=== PATIENT | male | born 1945 | race Caucasian/White ===

== ENCOUNTER → 2016-12-25 | Outpatient (CLI) | payer MEDICARE ==
[~2016-12-25] MED LIST: ALLEGRA DPS180 MG PO; ASA CHILDREN'S81 MG PO; AUGMENTIN875 MG PO; COMPAZINE10 MG PO; CORDARONE DPS200 MG PO; CYMBALTA60 MG PO; ELIQUIS5 MG PO; FIBERCON DPS625 MG PO; FLOMAX DPS0.4 MG PO; HUMULIN 70100 UNIT/1 SQ; JANUVIA50 MG PO; LIPITOR DPS40 MG PO; MARYS PO; MEN 50 PLUS MU1 EACH PO; MIDODRINE HCL5 MG PO; MILK OF MA400 MG/5 M PO; NITROSTAT0.4 MG SL; NOVOLOG100 UNIT/1 SQ; PRO-AMATINE2.5 MG PO; TYLENOL EXTRA500 M1 PO
== END | disposition home or self-care (01) ==
LOC: PTH.S 10:01
DX: Z01.812 Encounter for preprocedural laboratory examination (principal)

== ENCOUNTER 2017-01-01 05:50 | Inpatient (IN) | payer MEDICARE ==
[~2017-01-01] VITALS: Ht 182.9 cm; Wt 113.7 kg
--- NOTE | ~2017-01-01 | FD ---
ADMIT: 01/01/2017 RM/LOC: 530 [facility] MR#: [id number] [address] [address] ABIEL SALAMANCA [address] [place] [address] Final Diagnosis SEX: M AGE: 71 : 1945 ADMISSION DATE: 01/01/2017 DISCHARGE DATE: 01/02/2017 PROCEDURE: 1. Removal of left subclavian power port. 2. Flexible sigmoidoscopy to evaluate the area of anastomosis. 3. Takedown of loop ileostomy. 4. Exploration and debridement of midline abdominal wound abscess. FINAL DIAGNOSIS: Small piece of small intestine was sent to pathology after this procedure. There was no significant diagnostic alteration found. History of rectosigmoid cancer. ARMANDO Swanson / Janusz Phan MD / ijeoma JOB #: [id number] CC: Janusz Phan MD, Attending Physician Marlen Cuevas MD, Family Physician
[~2017-01-01 05:50] MED LIST changes: -MIDODRINE HCL5 MG PO; -NOVOLOG100 UNIT/1 SQ
[2017-01-03] MEDS ORDERED: NOVOLOG100 UNIT/1 SQ (13:04)
[2017-01-03] MEDS ORDERED: HUMULIN 70100 UNIT/1 SQ (13:06)
[2017-01-03] MEDS ORDERED: MIDODRINE HCL5 MG PO (13:07)
--- NOTE | 2017-01-07 12:56 | CO ---
ADMIT: 01/01/2017 RM/LOC: 530 [facility] MR#: [id number] [address] [address] JULIO SALAMANCA [address] [place] [address] Consultation SEX: M AGE: 71 : 1945 DATE OF CONSULTATION: 01/02/2017 ATTENDING PHYSICIAN: Janusz Phan MD CONSULTING PHYSICIAN: Cornel Nuñez MD REASON FOR CONSULTATION: Diabetic management. HISTORY OF PRESENT ILLNESS: Julio is a very pleasant 71-year-old white male, admitted by Dr. Phan for an elective loop ileostomy takedown as well as removal of a left PowerPort. He does have a history of diabetes mellitus type 2. I am consulted today for medical comanagement and management of his diabetes. He is seen today status post loop ileostomy takedown, exploration and debridement of midline abdominal wound and stitch abscess, flexible sigmoidoscopy to evaluate area of anastomosis, and removal of left subclavian PowerPort. PAST MEDICAL HISTORY: Remarkable for: 1. Adenocarcinoma of the rectosigmoid. 2. Coronary artery disease. 3. Diabetes mellitus type 2. 4. History of diabetic osteomyelitis. 5. Hypertension. 6. Paroxysmal atrial fibrillation. 7. Prior four-vessel coronary artery bypass graft. 8. Stage 3 chronic kidney disease. ALLERGIES: NO KNOWN MEDICAL ALLERGIES. MEDICATIONS: Per his admission MAR. SOCIAL HISTORY: He is a nonsmoker and nondrinker. He normally sees Dr. Marlen Cuevas in [place] for his primary care needs. He is , and retired. FAMILY HISTORY: Noncontributory. REVIEW OF SYSTEMS: This morning, he is up, eating breakfast. He has minimal abdominal pain. He has not had any vomiting. He has done quite well postoperatively. Remainder of his review of systems is as per HPI. All others were reviewed and were negative. PHYSICAL EXAMINATION: VITAL SIGNS: Blood pressure is 135/78, pulse 92, respirations 12, temp 98.9, O2 saturation is 96% on room air. GENERAL: He is awake, alert, no acute distress. Upright in the bedside chair and just finishing up breakfast. HEENT: Normocephalic, atraumatic. ADMIT: 01/01/2017 RM/LOC: 530 [facility] MR#: [id number] [address] [address] JULIO SALAMANCA [address] [place] [address] Consultation SEX: M AGE: 71 : 1945 HEART: Regular rate and rhythm. No murmurs, gallops, or rubs. LUNGS: Clear to auscultation bilaterally. ABDOMEN: Soft, nontender, nondistended. No rebound, guarding, or masses. LABORATORY AND X-RAY DATA: A postoperative CBC shows a white count of 3.9, hemoglobin of 8.7, hematocrit 28.1, and a platelet count of 189. ASSESSMENT: 1. Status post loop ileostomy takedown, postoperative day #1. 2. Diabetes mellitus type 2. PLAN: With Julio now increasing his p.o. intake, we will change his Accu- Cheks to after meals and at bedtime. We will resume his home dose of insulin 70/30, and resume his home Januvia. We will follow along but at this point, he is doing great and I suspect to be discharged to home either later today or early in the morning. Cornel Nuñez MD/ sureshl JOB #: [id number] CC: Janusz Phan MD, Attending Physician Marlen Cuevas MD, Family Physician
--- NOTE | 2017-01-19 12:20 | OR ---
ADMIT: 01/01/2017 RM/LOC: 530 [facility] MR#: [id number] [address] [address] ABIEL SALAMANCA Carmen [address] [place] [address] Operative/Delivery Room Report SEX: M AGE: 71 : 1945 SURGERY DATE: 01/01/2017 SURGEON: Janusz Phan MD PREOPERATIVE DIAGNOSIS: History of rectal cancer status post resection with loop ileostomy, request for takedown as well as no longer need for power port, left side. PROCEDURES: 1. Removal of left subclavian PowerPort. 2. Flexible sigmoidoscopy to evaluate the area of anastomosis. 3. Takedown of loop ileostomy. 4. Exploration and debridement of midline abdominal wound/stitch abscess. ANESTHESIA: General endotracheal tube anesthesia. ESTIMATED BLOOD LOSS: 20 mL or less for all. INDICATION FOR PROCEDURE: Please see H and P. PROCEDURE IN DETAIL: After the risks, benefits, possible complications, and the alternatives have been explained, and informed consent had been obtained, the patient was taken back to the operating room, underwent general anesthesia. The surgical field was prepped and draped in a sterile manner. Actually first prepped and draped the [id number] in the left subclavian area, made an incision with a knife down through skin and subcutaneous tissue, opened the pocket, cut the stitch and the PowerPort from the left side was removed in its entirety, closed with some interrupted 3-0 Vicryl and a running 4-0 Monocryl that was bandaged. I then did a flexible sigmoidoscopy. You can see in the pictures, the area of the anastomosis and we had come anteriorly, is where we ended up anastomosis in the sigmoid colon down to the rectal stump and so you can see an extra opening there and then this other spot is a, I am sure radiation type of little a channel from the previous radiation. [place] I could get through this anastomosis, it was not narrowed overtly or anything funny and so should be good to go. The scope was removed. I had only advanced about 20 cm through the anastomosis. The legs were placed down out of the fins, placed flat and everything was sterilely prepped and draped as I a gowned and gloved and scrubbed. First he had a small, right around his umbilicus, and below, a little opening that had some granulation tissue and it has been draining. So I went ahead and opened that up, debrided some of the subcutaneous tissue that is kind of superficial to the fascia using a knife. I did not have to do anything deep to the fascia. There was part of a stitch that I found. I was able to remove. Did not see anything else, cleaned it up, washed it out with Betadine and then closed with some nawaf and a wick was placed. ADMIT: 01/01/2017 RM/LOC: 530 [facility] MR#: [id number] [address] [address] TEJAL SALAMANCABIGG Morales [address] [place] [address] Operative/Delivery Room Report SEX: M AGE: 71 : 1945 Once that was done, we then began with the ileostomy takedown and coursed for awhile, where getting output from the ileostomy was always tough. I ended up kind using a Ray-Vladislav to stuff in there and keep it from leaking. So, definitely contaminated fairly significantly here. Used a knife to go around the loop ileostomy, freeing that up from the skin and subcutaneous tissue all way down to the fascia and circumferentially freeing that up to where I could feel there was nothing else there. The bowel was brought up. I was able to then kind of free it up, open up the ends, clean it off enough that I could do a [id number] functional end-to-end stapled anastomosis of the loop ileostomy using the MILDRED 75 and removing the end of it with the MILDRED 75 as well. I used some silk sutures to over sew the staple line and the crotch of the anastomosis. It appeared patent nicely. I then returned it to the abdominal cavity and closed the ileostomy site in the right lower quadrant with a couple layers of PDS first closing the peritoneum, irrigated out with some water, then closed the fascia with another layer, irrigated out with water and Betadine. Couple of subcutaneous stitches were placed and nawaf and felicia. He tolerated all very well. He was being extubated when I left the room. He was in stable and satisfactory condition with all needle and lap counts correct x2. Janusz Phan MD/ ijeoma JOB #: [id number] CC: Janusz Phan, Attending Physician Marlen Cuevas, Family Physician
== END 2017-01-02 15:56 | disposition home or self-care (01) | DRG 330 ==
LOC: 5MS 05:50 → WOR 05:50 → 5MS 10:04
PROVIDERS: ADMIT Surgery
PROC: 0DJD8ZZ Inspection of Lower Intestinal Tract, Via Natural or Artificial Opening Endoscopic (ICD-10-PCS; principal; 2017-01-01)
PROC: 0JB80ZZ Excision of Abdomen Subcutaneous Tissue and Fascia, Open Approach (ICD-10-PCS; principal; 2017-01-01)
PROC: 02PY33Z Removal of Infusion Device from Great Vessel, Percutaneous Approach (ICD-10-PCS; principal; 2017-01-01)
PROC: 0JPT0XZ Removal of Tunneled Vascular Access Device from Trunk Subcutaneous Tissue and Fascia, Open Approach (ICD-10-PCS; principal; 2017-01-01)
PROC: 0DBB0ZZ Excision of Ileum, Open Approach (ICD-10-PCS; principal; 2017-01-01)
DX: Z43.2 Encounter for attention to ileostomy (principal); T81.4XXA Infection following a procedure, initial encounter; E11.22 Type 2 diabetes mellitus with diabetic chronic kidney disease; E11.40 Type 2 diabetes mellitus with diabetic neuropathy, unspecified; L02.211 Cutaneous abscess of abdominal wall; I25.10 Atherosclerotic heart disease of native coronary artery without angina pectoris; I12.9 Hypertensive chronic kidney disease with stage 1 through stage 4 chronic kidney disease, or unspecified chronic kidney disease; N18.3 Chronic kidney disease, stage 3 (moderate); I95.1 Orthostatic hypotension; E66.9 Obesity, unspecified; Z68.34 Body mass index [BMI] 34.0-34.9, adult; Z79.4 Long term (current) use of insulin; Z85.048 Personal history of other malignant neoplasm of rectum, rectosigmoid junction, and anus; Z79.82 Long term (current) use of aspirin; Z95.1 Presence of aortocoronary bypass graft

== ENCOUNTER 2017-03-08 11:05 | Inpatient (IN) | payer MEDICARE ==
[~2017-03-08] VITALS: Ht 182.9 cm; Wt 126.0 kg
--- NOTE | ~2017-03-08 | OR ---
ADMIT: 03/08/2017 RM/LOC: 306 [facility] MR#: [id number] 26[address] [facility] [address] [place] [phone] ABIEL SALAMANCA [address] [place] [address] Operative/Delivery Room Report SEX: M AGE: 71 : 1945 SURGERY DATE: 03/08/2017 SURGEON: Janusz Phan MD PREOPERATIVE DIAGNOSES: History of a rectal cancer with previous radiation, resection, and now anemia and ongoing rectal bleeding, bright red blood per rectum. PROCEDURES: 1. EGD (Esophagogastroduodenoscopy). 2. Flexible sigmoidoscopy with a Resolution clip for acute bleeding, radiated and ulcerated area within the lower rectum and pelvis. DIRECTOR OF STUDENT AID: Tay Hopper MD, who was necessary for adequate help and exposure trying to hold this bleeding. ANESTHESIA: First MAC anesthesia converted to a general endotracheal tube anesthesia. ESTIMATED BLOOD LOSS: 300 mL. Ultimately, over the course, we activated the transfusion protocol, the patient got 6 total units of blood, 2 uncross matched and 4 cross matched units of packed red blood cells, 2 units of FFP, and 1 unit of platelets. INDICATION FOR PROCEDURE: Please see my H and P. After the risks, benefits, possible complications, and the alternatives had been explained, and informed consent had been obtained, the patient was taken back to the operating room and underwent some sedation. The flexible EGD scope was first introduced slowly maneuvering down through the esophagus, stomach, down into the second portion of the duodenum. The duodenum and duodenal bulb appeared okay. The gastric antrum and the body showed no other ulcerations, no masses, no lesions, no evidence of bleeding here at the GE junction. The remainder of the esophagus otherwise looked okay as the scope was removed, and this portion of the procedure terminated. The patient was repositioned. The flexible colonoscope then was introduced and immediately just significant amount of clot as you can see in my pictures, there was a couple different sets there and just a very radiated, irritated area within this lower rectum. When I kept suctioning out this clot and suctioning out this clot, I ended up getting Dr. Hopper to come in here and help, and using the Yankauer suction to suction it out, we finally got enough suctioned out and then one of the sets of pictures, I do not know what we call it picture #4, shows this area of some active bleeding where I could actually see pulsatile bleeding here, and I ended up getting a Resolution clip. At some point, got things set up, and I attempted at least to place a Resolution clip on here, and immediately, I had some more blood and then I could not see, and I tried cleaning and suctioning it out, then appeared that it had stopped, so the resolution clip was in good position, I am not 100% sure because I did not ADMIT: 03/08/2017 RM/LOC: 306 [facility] MR#: [id number] [address] [place] [phone] ABIEL SALAMANCA Carmen [address] [place] [address] Operative/Delivery Room Report SEX: M AGE: 71 : 1945 want to mess with it. After a while and like I said, he was bleeding quite a bit and we have started the massive transfusion protocol, and actually during this process, anesthesia had intubated him. Before we kind of retried this to look at it again, felt we had it adequately halted for temporary time being, and so I did not mess with anything else. I got ahold of Dr. Graff, and so from an interventional standpoint, he is going to do an angio to see if he can find the area that is bleeding, the vessel that is bleeding, and just basically embolize it so that we do not have any other issues here with this continuing to bleed. So from that standpoint, he left the operating room, intubated, Han in place, and taken over to Interventional Radiology, and you can see his overall notes for that. Janusz Phan MD/ ijeoma JOB #: [id number] CC: Janusz Phan, Attending Physician Marlen Cuevas, Family Physician Marlen Cuevas MD
[~2017-03-08 11:05] MED LIST changes: +MIDODRINE HCL5 MG PO; +NOVOLOG100 UNIT/1 SQ
--- NOTE | 2017-03-11 18:15 | CO ---
ADMIT: 03/08/2017 RM/LOC: 306 [facility] MR#: [id number] [address] [address] TEJAL SALAMANCABIGG Morales [address] [place] [address] Consultation SEX: M AGE: 71 : 1945 DATE OF CONSULTATION: 03/08/2017 ATTENDING PHYSICIAN: Janusz Phan CONSULTING PHYSICIAN: Emil Mendoza MD REASON FOR CONSULTATION: Respiratory failure. HISTORY OF PRESENT ILLNESS: A 71-year-old male with recent history of rectal cancer. It sounds as if he had some preoperative radiation and chemotherapy and then subsequent surgical resection. He had an ileostomy for a period of time and then eventually had a takedown with reanastomosis. I believe, the original diagnosis was in August per the charts, but I do not have all the dates. At any rate, he has been having some persistent rectal bleeding resulting in anemia and overall weakness. Told, he underwent endoscopy for evaluation. EGD was unremarkable. Flexible sigmoidoscopy revealed a rectal ulcer that began to actively bleed. With local control, the bleeding eventually subsided. Invasive radiology did evaluate him, but there was no vessel that was able to be embolized. Bleeding has subsided for the most part. According to Dr. Phan, he received 6 units of packed red blood cells, 2 units of FFP, and 1 unit of platelets. Blood pressure has stabilized and he is not any longer on pressors. He does remain on a ventilator, and we are asked to participate in his care. He does not have any history of chronic lung disease. He did previously smoke about a pack and a half daily for what sounds like about 30 years, but quit about 20 years ago. He does have coronary artery disease and had bypass surgery in 2008. He does have a history of paroxysmal atrial fibrillation and is on amiodarone. He has not been on anticoagulation recently because of the anemia. There has not been any purulent phlegm production. No hemoptysis. PAST MEDICAL HISTORY: 1. Rectal cancer, as above. 2. Coronary artery disease, status post bypass surgery in 2008. 3. Paroxysmal atrial fibrillation, on amiodarone. 4. Hypertension. 5. Hyperlipidemia. 6. Diabetes mellitus. 7. History of peripheral vascular disease with partial foot amputation in the past. HOME MEDICATIONS: Reviewed and included; 1. Aspirin. 2. Duloxetine. 3. Atorvastatin. 4. Fexofenadine. 5. Insulin. 6. Januvia. 7. Multivitamin. ADMIT: 03/08/2017 RM/LOC: 306 [facility] MR#: [id number] [address] [address] ABIEL SALAMANCA [address] [place] [address] Consultation SEX: M AGE: 71 : 1945 8. Flomax. 9. Amiodarone. 10.Midodrine. 11.Iron sulfate. 12.Prilosec. 13.Tylenol. 14.Nitrostat. ALLERGIES: NONE ARE LISTED. SOCIAL HISTORY: Previous smoker, sounds like about a 40- to 50-pack year history of smoking. FAMILY HISTORY: Noncontributory to his current illness. REVIEW OF SYSTEMS: GENERAL: No recent fevers. SKIN: No rash. HEAD AND NECK: No witnessed swallowing or aspiration events. EYES: No visual problems. RESPIRATORY: As above. CARDIAC: His blood pressure has been stable. No dysrhythmias. GASTROINTESTINAL: As above. GENITOURINARY: No dysuria, frequency, or hematuria. MUSCULOSKELETAL: No new arthritis or arthralgias. NEUROLOGIC: No new focal complaints. PHYSICAL EXAMINATION: VITAL SIGNS: Listed on his chart and reviewed. GENERAL: This is a white male, currently sedated. SKIN: Warm and dry, may be a little bit pale, but no rash. HEAD AND NECK: Normocephalic. No scleral icterus. He is orotracheally intubated. NECK: Supple. LUNGS: Essentially clear to auscultation. He is on a ventilator. HEART: Regular rate and rhythm. ABDOMEN: Soft, nontender. No peritoneal signs. EXTREMITIES: Reveal changes of partial left foot amputation. No clubbing or cyanosis. NEUROLOGIC: He is currently sedated. Chest x-ray is pending. White count 5.3, hemoglobin 6.9, platelet count 275,000. Sodium 139, potassium 3.9, BUN 33, creatinine 2.1. ASSESSMENT: 1. Acute respiratory failure. 2. Hemorrhagic and hypovolemic shock. 3. Lower gastrointestinal bleed. 4. History of rectal carcinoma. 5. Paroxysmal atrial fibrillation. ADMIT: 03/08/2017 RM/LOC: 306 [facility] MR#: [id number] [address] [place] [address] ABIEL SALAMANCA [address] [place] [address] Consultation SEX: M AGE: 71 : 1945 6. Coronary artery disease. 7. Diabetes mellitus. 8. Acute kidney injury. 9. Peripheral vascular disease. He is critically ill currently. Bleeding seems to have subsided and he has stabilized. He has been resuscitated from hematologic standpoint. Repeat laboratory studies are pending including CBC and coagulation studies. I discussed with Dr. Phan. We will allow stabilization and because of the severity of illness, we will keep him on the ventilator tonight. We will provide sedation. We will monitor his blood sugars and maintain appropriate control. Appropriate ICU protocols will be provided. Hopefully if he remains stable, we can pursue extubation in the morning. Thank you for allowing me to participate in the care of this patient, and as always, if you have any questions, please feel free to contact me. This represents 50 minutes of critical care time spent directly with this patient not including procedures. Emil Mendoza MD/ ijeoma JOB #: [id number] CC: Janusz Phan, Attending Physician Marlen Cuevas, Family Physician Janusz Phan MD
--- NOTE | 2017-03-20 16:25 | DS ---
ADMIT: 03/08/2017 RM/LOC: 306 [facility] MR#: [id number] 2620 [facility] [address] [place] [address] ABIEL SALAMANCA [address] [place] [address] General Discharge Summary SEX: M AGE: 71 : 1945 ADMISSION DATE: 03/08/2017 DISCHARGE DATE: 03/10/2017 ADMITTING DIAGNOSIS: Anemia with acute rectal hemorrhage. DISMISSAL DIAGNOSIS: 1. Acute rectal hemorrhage, anemia. 2. History of rectal cancer with previous radiation and resection. 3. A fib (atrial fibrillation). 4. Hypertension. 5. Coronary artery disease. 6. Hyperlipidemia. 7. Diabetes. PROCEDURES: 1. EGD. 2. Flexible sigmoidoscopy with clip application. 3. Abdominal angiogram with selective arteriogram. HOSPITAL COURSE: The patient immediately underwent EGD and flexible sigmoidoscopy in addition to abdominal angiogram with selective arteriogram upon arrival. He was an stable case. After his procedures, he was given 6 units of PRBCs and 2 units of FFP and 1 unit of platelets during his procedure. He was admitted as an inpatient in the ICU. He was left on the vent. Critical Care was consulted. On the next day, he continued to receive 3 units of PRBCs and 2 units of FFP. It was determined at this time that the patient would benefit from transfer to [facility] for further assessment of this lower rectal hemorrhage. He continued to have large bloody stools with clots. On 03/09/2017, the patient was extubated and was tolerating that well. On the next day, he continued to receive PRBCs and platelets, and then he was finally arranged for transfer. He transferred from this facility to [facility] in [place]. DISCHARGE INSTRUCTIONS: None. DISCHARGE MEDICATION LIST: None. ARMANDO Swanson / Janusz Phan MD / coco JOB #: [id number] CC: Janusz Phan MD, Attending Physician Marlen Cuevas MD, Family Physician
--- NOTE | 2017-03-20 16:25 | HP ---
ADMIT: 03/08/2017 RM/LOC: [facility] MR#: [id number] [address] [address] ABIEL SALAMANCA Carmen [address] [place] [address] Pre-OP History and Physical SEX: M AGE: 71 : 1945 DATE OF SERVICE: PLAN: EGD and flexible sigmoidoscopy for anemia and rectal bleeding. HISTORY OF PRESENT ILLNESS: This patient is a 71-year-old male who had a low rectal cancer back in August of 2016. I did an open low anterior resection for a rectal cancer that ended up being a T2 lesion with no positive nodes, and because of preoperative radiation, loop ileostomy on 01/01/2017, so a couple of months ago, I did a take down of the loop ileostomy. He has since that time had some issues with rectal bleeding off and on. He had been on more of a blood thinner Eliquis I believe that has been held. He has only been on aspirin. He has gotten to the point where he has been anemic, needed transfusions, got weak. He had had problems with low blood pressure and they felt that was probably secondary to a medicine at one point. At this point because of the ongoing intermittent chronic bleeding, we are going to look at his stomach to make sure there are no ulcers or anything else that are going on, bad gastritis things of that nature then we will also evaluate his lower rectum and anastomosis with a flexible sigmoidoscopy, which I have discussed with him, what that entails, the risks, the benefits, possible complications, and alternatives. He understands and wishes to proceed. PAST MEDICAL HISTORY: Significant for the above. History of atrial fibrillation, hypertension, coronary artery disease, hyperlipidemia, and diabetes. PAST SURGICAL HISTORY: He has had a CABG done in the past, the above colon surgery, and colonoscopy. He has also had foot partial amputation and surgeries there as well. Limits his mobility. He spends most of his time in a wheelchair, hard for him to be up and around on his feet. CURRENT MEDICATIONS: Please see list. ALLERGIES: NO KNOWN DRUG ALLERGIES. FAMILY HISTORY: Otherwise, noncontributory. SOCIAL HISTORY: Former smoker. Denies any alcohol or any illicit drugs. ADMIT: 03/08/2017 RM/LOC: [facility] MR#: [id number] [address] [address] ABIEL SALAMANCA [address] [place] [address] Pre-OP History and Physical SEX: M AGE: 71 : 1945 REVIEW OF SYSTEMS: Positive for the above, otherwise negative. PHYSICAL EXAMINATION: GENERAL: He is alert. He is oriented. He is in no significant distress. HEENT: His sclerae appear nonicteric. CHEST: Clear anteriorly. HEART: Regular. ABDOMEN: Soft. No pain to palpation. Positive bowel sounds. ASSESSMENT AND PLAN: As above. PLAN: Flexible sigmoidoscopy and EGD because of the above reasons. Janusz Phan MD/ ijeoma JOB #: [id number] CC: Janusz Phan, Attending Physician UNKNOWN, Family Physician
== END 2017-03-10 09:40 | disposition short-term general hospital (02) | DRG 377 ==
LOC: SSS 11:05 → 3ICU 14:50
PROVIDERS: ADMIT Surgery
PROC: 0DJ08ZZ Inspection of Upper Intestinal Tract, Via Natural or Artificial Opening Endoscopic (ICD-10-PCS; principal; 2017-03-08)
PROC: B41B1ZZ Fluoroscopy of Other Intra-Abdominal Arteries using Low Osmolar Contrast (ICD-10-PCS; principal; 2017-03-08)
PROC: 0B938ZX Drainage of Right Main Bronchus, Via Natural or Artificial Opening Endoscopic, Diagnostic (ICD-10-PCS; principal; 2017-03-08)
PROC: 30233N1 Transfusion of Nonautologous Red Blood Cells into Peripheral Vein, Percutaneous Approach (ICD-10-PCS; principal; 2017-03-08)
PROC: 0BH17EZ Insertion of Endotracheal Airway into Trachea, Via Natural or Artificial Opening (ICD-10-PCS; principal; 2017-03-08)
PROC: B4151ZZ Fluoroscopy of Inferior Mesenteric Artery using Low Osmolar Contrast (ICD-10-PCS; principal; 2017-03-08)
PROC: 30233K1 Transfusion of Nonautologous Frozen Plasma into Peripheral Vein, Percutaneous Approach (ICD-10-PCS; principal; 2017-03-08)
PROC: 5A1935Z Respiratory Ventilation, Less than 24 Consecutive Hours (ICD-10-PCS; principal; 2017-03-08)
PROC: 0W3P8ZZ Control Bleeding in Gastrointestinal Tract, Via Natural or Artificial Opening Endoscopic (ICD-10-PCS; principal; 2017-03-08)
PROC: 30233R1 Transfusion of Nonautologous Platelets into Peripheral Vein, Percutaneous Approach (ICD-10-PCS; principal; 2017-03-08)
DX: K62.5 Hemorrhage of anus and rectum (principal); J96.00 Acute respiratory failure, unspecified whether with hypoxia or hypercapnia; R57.1 Hypovolemic shock; N17.9 Acute kidney failure, unspecified; K62.6 Ulcer of anus and rectum; E11.51 Type 2 diabetes mellitus with diabetic peripheral angiopathy without gangrene; I48.0 Paroxysmal atrial fibrillation; D64.9 Anemia, unspecified; I10 Essential (primary) hypertension; I25.10 Atherosclerotic heart disease of native coronary artery without angina pectoris; I73.9 Peripheral vascular disease, unspecified; E78.5 Hyperlipidemia, unspecified; Z92.3 Personal history of irradiation; Z85.048 Personal history of other malignant neoplasm of rectum, rectosigmoid junction, and anus; Z79.82 Long term (current) use of aspirin; Z95.1 Presence of aortocoronary bypass graft; Z87.891 Personal history of nicotine dependence; Z79.4 Long term (current) use of insulin